=== PATIENT | male | born 1930 | race Caucasian/White ===

== ENCOUNTER 2018-09-13 22:11 | Inpatient (IN) | payer OTHER ==
[~2018-09-13] VITALS: Ht 162.6 cm; Wt 55.3 kg
--- NOTE | ~2018-09-13 | EKG ---
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 : 1930 Requested By: Parris Mayer Order Number: [id number] MD: Ivan Cleveland Measurements Intervals [place] Rate: 94 P: -33 MI: 138 QRS: 18 QRSD: 84 T: 41 QT: 393 QTc: 492 Interpretive Statements Sinus rhythm Multiform ventricular premature complexes Low voltage, extremity leads No previous ECG available for comparison Electronically Signed On 09-14-2018 10:38:51 ROLL TESTER by Ivan Cleveland [email or web address] <ELECTRONICALLY SIGNED> By: Ivan Cleveland MD, [facility] 09/14/18 1038 D: 12/2216 16 Ivan Cleveland MD, FACC /EPI
--- NOTE | ~2018-09-13 | EKG ---
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 Fighter: Shayy CARO : 1930 Requested By: Luis Fernando Diaz Order Number: [id number] MD: Ivan Cleveland Measurements Intervals [place] Rate: 74 P: 35 TN: 185 QRS: 17 QRSD: 88 T: 29 QT: 370 QTc: 411 Interpretive Statements Sinus rhythm Frequent premature ventricular complexes Low voltage, extremity leads Compared to ECG 09/13/2018 22:17:52 No significant changes Electronically Signed On 09-16-2018 8:21:35 ISSUE CLERK by Ivan Cleveland [email or web address] <ELECTRONICALLY SIGNED> By: Ivan Cleveland MD, [facility] 09/16/18 0821 99 99 Ivan Cleveland MD, [facility] /EPI
[2018-09-13 22:12] VITALS: BP 138/88
[2018-09-13 23:23] LABS: ABSOLUTE NEUTROPHILS 7.4 thou/uL (1.4-8.2); BASOPHILS 0.1 % (0.0-2.0); EOSINOPHILS 0.3 % (0.0-3.0); HEMOGLOBIN 12.1 gm/dL (14.0-18.0); MCH 34.7 pg (26.0-34.0); MCHC 33.7 g/dL (28.0-37.0); MONOCYTES 8.1 % (1.0-8.0); PLATELET COUNT 361 thou/uL (150-400); POLYS 74.5 % (36.0-66.0); RDW 18.9 % (10.5-14.5); WBC 9.9 thou/uL (4.0-11.0)
[2018-09-13 23:25] LABS: ANION GAP 7 mmol/L (7-16); BUN 33 mg/dL (7-18); CHLORIDE 107 mmol/L (98-107); CO2 30 mmol/L (21-32); GLUCOSE 107 mg/dL (74-106); POTASSIUM 3.9 mmol/L (3.5-5.1); SODIUM 144 mmol/L (136-145)
[2018-09-13 23:33] LABS: ALBUMIN 3.7 g/dL (3.4-5.0); DIRECT BILIRUBIN 0.1 mg/dL (<0.1-0.3); LIPASE 725 U/L (73-393); SGOT 14 U/L (15-37); SGPT 14 U/L (30-65); TOTAL BILIRUBIN 0.5 mg/dL (<0.1-1.0); TOTAL PROTEIN 6.9 g/dL (6.4-8.2); TROPONIN-I <0.06 ng/mL (<0.06)
[2018-09-14] LABS: URINE BILIRUBIN NEGATIVE (Negative); URINE BLOOD NEGATIVE (Negative); URINE CLARITY CLEAR; URINE COLOR YELLOW; URINE GLUCOSE-RANDOM* NEGATIVE (Negative); URINE KETONES NEGATIVE (Negative); URINE LEUKOCYTES-REFLEX NEGATIVE (Negative); URINE NITRITE-REFLEX NEGATIVE (Negative); URINE PROTEIN (DIPSTICK) NEGATIVE (Negative); URINE SPECIFIC GRAVITY >= 1.030 (1.005-1.035)
[2018-09-14] MEDS ORDERED: AMOXICILLIN 50500 MG PO (02:13)
[2018-09-14] MEDS ORDERED: ASPIR 8181 MG PO (02:13)
[2018-09-14] MEDS ORDERED: COLACE100 MG PO (02:14)
[2018-09-14] MEDS ORDERED: FISH OIL 1,001000 M2 PO (02:15)
[2018-09-14] MEDS ORDERED: FERROUS GLUCON324 M2 PO (02:15)
[2018-09-14] MEDS ORDERED: FLUOROMETHOLONE5 ML OPHTHALMIC (02:16)
[2018-09-14] MEDS ORDERED: FLONASE 0.05%50 MCG NASAL (02:17)
[2018-09-14] MEDS ORDERED: ALBUTEROL2.5 MG/31 INH (02:18)
[2018-09-14] MEDS ORDERED: SYNTHROID50 MCG PO (02:19)
[2018-09-14] MEDS ORDERED: MEGESTROL400 MG/11 PO (02:20)
[2018-09-14] MEDS ORDERED: NORCO 5-325 TA1 EACH PO (02:21)
[2018-09-14] MEDS ORDERED: CENTRUM SILVER1 EAC2 PO (02:21)
[2018-09-14] MEDS ORDERED: POTASSIUM20 PO (02:24)
[2018-09-14] MEDS ORDERED: PREDNISONE 20 M20 MG PO (02:31)
[2018-09-14] MEDS ORDERED: PROTONIX40 M1 PO (02:32)
[2018-09-14] MEDS ORDERED: SYMBICORT160 MCG/4. INH (02:32)
[2018-09-14] MEDS ORDERED: VITAMIN D3400 UNIT PO (02:33)
[2018-09-14 05:13] VITALS: BP 91/44
[2018-09-14 05:29] VITALS: BP 104/59
[2018-09-14 05:58] VITALS: BP 104/66
[2018-09-14 15:08] VITALS: BP 111/71
[2018-09-14 19:15] VITALS: BP 119/52
[2018-09-14 23:53] VITALS: BP 110/47
[2018-09-15 03:15] VITALS: BP 97/70
[2018-09-15 04:18] LABS: CALCIUM 8.4 mg/dL (8.5-10.1); CREATININE 0.9 mg/dL (0.7-1.3); POTASSIUM 4.3 mmol/L (3.5-5.1)
[2018-09-15 09:29] LABS: HEMATOCRIT 27.6 % (42.0-52.0); MCH 34.7 pg (26.0-34.0); MCHC 33.5 g/dL (28.0-37.0); MCV 103.7 fL (80.0-100.0); RBC 2.66 mil/uL (4.50-6.00); RDW 19.4 % (10.5-14.5); WBC 7.4 thou/uL (4.0-11.0)
[2018-09-15 09:31] LABS: HEMOGLOBIN 9.2 gm/dL (14.0-18.0)
[2018-09-15 16:00] VITALS: BP 105/62
[2018-09-15 19:13] VITALS: BP 106/58
[2018-09-16 07:18] VITALS: BP 108/74
[2018-09-16 09:02] LABS: HEMATOCRIT 30.2 % (42.0-52.0); HEMOGLOBIN 10.4 gm/dL (14.0-18.0); MCH 35.3 pg (26.0-34.0); MCHC 34.6 g/dL (28.0-37.0); MCV 102.2 fL (80.0-100.0); RBC 2.96 mil/uL (4.50-6.00); RDW 18.3 % (10.5-14.5)
[2018-09-16 09:14] LABS: CALCIUM 8.7 mg/dL (8.5-10.1); CREATININE 0.8 mg/dL (0.7-1.3); MAGNESIUM 1.8 mg/dL (1.8-2.4); POTASSIUM 4.7 mmol/L (3.5-5.1)
[2018-09-16] MEDS ORDERED: SPIRIVA INH (16:05)
[2018-09-16] MEDS ORDERED: PREDNISONE 10 M10 MG PO (16:05)
[2018-09-16] MEDS ORDERED: MIRALAX17 GM PO (16:06)
[2018-09-16 16:28] VITALS: BP 101/46
== END 2018-09-16 18:54 | DRG 439 ==
LOC: ER 22:11 → 4W 09-14 04:17 → EROBS 09-14 04:17 → 4W 09-14 05:32
PROVIDERS: Emergency Medicine; Internal Medicine; Nurse Practitioner Acute Care
DX: K85.90 Acute pancreatitis without necrosis or infection, unspecified (principal); J96.10 Chronic respiratory failure, unspecified whether with hypoxia or hypercapnia; J44.1 Chronic obstructive pulmonary disease with (acute) exacerbation; I50.9 Heart failure, unspecified; K21.9 Gastro-esophageal reflux disease without esophagitis; K59.00 Constipation, unspecified; M54.5 Low back pain; N40.0 Benign prostatic hyperplasia without lower urinary tract symptoms; E03.9 Hypothyroidism, unspecified; I11.0 Hypertensive heart disease with heart failure; M62.84 Sarcopenia; R63.0 Anorexia; Z68.20 Body mass index [BMI] 20.0-20.9, adult; Z87.891 Personal history of nicotine dependence; Z79.51 Long term (current) use of inhaled steroids; Z79.82 Long term (current) use of aspirin; Z79.899 Other long term (current) drug therapy; Z88.2 Allergy status to sulfonamides
CPT/HCPCS: 10045

== ENCOUNTER 2018-09-19 10:15 | Inpatient (IN) | payer OTHER ==
[~2018-09-19] VITALS: Ht 177.8 cm; Wt 50.4 kg
[~2018-09-19 10:15] MED LIST: ALBUTEROL2.5 MG/31 INH; AMOXICILLIN 50500 MG PO; ASPIR 8181 MG PO; CENTRUM SILVER1 EAC2 PO; COLACE100 MG PO; FERROUS GLUCON324 M2 PO; FISH OIL 1,001000 M2 PO; FLONASE 0.05%50 MCG NASAL; FLUOROMETHOLONE5 ML OPHTHALMIC; MEGESTROL400 MG/11 PO; MIRALAX17 GM PO; NORCO 5-325 TA1 EACH PO; POTASSIUM20 PO; PREDNISONE 10 M10 MG PO; PREDNISONE 20 M20 MG PO; PROTONIX40 M1 PO; SPIRIVA INH; SYMBICORT160 MCG/4. INH; SYNTHROID50 MCG PO; VITAMIN D3400 UNIT PO
[2018-09-19 10:18] VITALS: BP 132/91
[2018-09-19 10:40] LABS: HEMOGLOBIN 13.1 gm/dL (14.0-18.0); MCH 33.9 pg (26.0-34.0); MCHC 33.5 g/dL (28.0-37.0); MCV 101.2 fL (80.0-100.0); RBC 3.86 mil/uL (4.50-6.00); RDW 18.8 % (10.5-14.5); WBC 19.1 thou/uL (4.0-11.0)
[2018-09-19 10:50] LABS: ANION GAP 8 mmol/L (7-16); BUN 36 mg/dL (7-18); CALCIUM 9.3 mg/dL (8.5-10.1); CHLORIDE 104 mmol/L (98-107); CO2 33 mmol/L (21-32); CREATININE 1.2 mg/dL (0.7-1.3); GLUCOSE 124 mg/dL (74-106); POTASSIUM 4.2 mmol/L (3.5-5.1); SODIUM 145 mmol/L (136-145)
[2018-09-19 11:01] LABS: ALBUMIN 3.5 g/dL (3.4-5.0); LIPASE 82 U/L (73-393); SGOT 15 U/L (15-37); SGPT 14 U/L (30-65); TOTAL BILIRUBIN 0.9 mg/dL (<0.1-1.0); TOTAL PROTEIN 6.6 g/dL (6.4-8.2); TROPONIN-I <0.06 ng/mL (<0.06)
[2018-09-19] MEDS ORDERED: TYLENOL325 MG PO (11:10)
[2018-09-19] MEDS ORDERED: COMBIVENT INH (11:13)
[2018-09-19 12:20] LABS: URINE BILIRUBIN NEGATIVE (Negative); URINE BLOOD NEGATIVE (Negative); URINE CLARITY CLEAR; URINE COLOR YELLOW; URINE GLUCOSE-RANDOM* NEGATIVE (Negative); URINE KETONES NEGATIVE (Negative); URINE LEUKOCYTES-REFLEX NEGATIVE (Negative); URINE NITRITE-REFLEX NEGATIVE (Negative); URINE PROTEIN (DIPSTICK) NEGATIVE (Negative); URINE UROBILINOGEN 0.2 E.U./dl (0.2-1.0)
[2018-09-19 15:11] VITALS: BP 131/86
[2018-09-19 17:07] VITALS: BP 141/84
[2018-09-19 18:01] VITALS: BP 141/95
[2018-09-19 19:34] VITALS: BP 132/78
--- NOTE | 2018-09-19 19:36 | NUR ---
Patient arrived from ER this evening. Patient is alert and oriented x3-4, forgetful, NEWHALEN. May be poor historian? Follows commands. Arrive with NGT in left nare at 40. Unable to hear bubble through tube, unable to pull gastric contents from tube. Per Xray, must advance another 5 cm. Easily advanced another 5 cm - advanced to 55 cm, which was goal of ER advancement. Easily pulled gastric contents. Ordered another xray for confirmation, awaiting results at this time. To edge inker uppers to LIS when confirmed placement. NPO. Surgery consult with possible surgery tomorrow per ER report. IVF infusing. Fall precautions in place. Admission history completed and oriented to new room. Report to oncoming shift. Continue to monitor.
--- NOTE | 2018-09-19 20:12 | EKG ---
[address] [address] ELECTROCARDIOGRAM REPORT Name: BHARATH THOMPSON Room #: 362-P ADM IN M.R.#: [id number] Admission: 09/19/18 Attend Phys: Lawrence Mejia MD Discharge: Date of : 31 Report #: [id number] THIS REPORT FOR: //name// [facility] ED Test Date: 2018-09-19 Test Time: 10:53:52 Pat Name: BHARATH THOMPSON Department: Room: 362 Gender: M Brake Tester: KFRIEDT : 1930 Requested By: Reji Peck Order Number: [id number] MD: Jorge Moreno Measurements Intervals [place] Rate: 85 P: 66 AK: 164 QRS: 5 QRSD: 84 T: 58 QT: 367 QTc: 437 Interpretive Statements Sinus rhythm with PACs Compared to ECG 09/15/2018 17:00:14 Sinus rhythm no longer present Ventricular premature complex(es) no longer present Electronically Signed On 09-19-2018 20:11:59 SPEEDBOAT OPERATOR by Jorge Moreno [email or web address] <ELECTRONICALLY SIGNED> By: Jorge Moreno MD 09/19/182010 52 105 Jorge Moreno MD /EPI
--- NOTE | 2018-09-19 20:46 | NUR ---
patient pulled out ng tube. at around 1999. spoke with surgeon at 2039. i explained that the pt is flat out refusing to allow the tube be replaced. he respected this patients no and allowed for no tube replacement. however, he ordered STRICT NPO! for tonight and keep head of bed elevated. he denies pain, and has no urge to vomit. he is managing his secretions without difficulty
[2018-09-19 23:36] VITALS: BP 118/65
[2018-09-20] VITALS (11 sets, daily range): BP systolic 103–140; BP diastolic 54–92
[2018-09-20 06:02] LABS: HEMATOCRIT 33.5 % (42.0-52.0); HEMOGLOBIN 11.3 gm/dL (14.0-18.0); MCH 34.5 pg (26.0-34.0); MCHC 33.8 g/dL (28.0-37.0); MCV 102.2 fL (80.0-100.0); RBC 3.28 mil/uL (4.50-6.00); RDW 19.5 % (10.5-14.5); WBC 16.1 thou/uL (4.0-11.0)
[2018-09-20 06:16] LABS: CALCIUM 8.7 mg/dL (8.5-10.1); POTASSIUM 3.9 mmol/L (3.5-5.1)
--- NOTE | 2018-09-20 08:39 | NUR ---
Patient left for surgery at 0830. Granddaughter at bedside.
--- NOTE | 2018-09-20 18:08 | NUR ---
Assumed care of patient at 0700. Vitals have been stable; patient does desat with oxygen at times, currently is holding O2 sats between 92-96% on 4L NC. Lung sounds are coarse / rhonchi. Loose cough. Patient left for surgery this morning and returned this afternoon. Had hernia repair with gastric decompression. Returned with 3 laps sites and incision to right lower quadrant / groin, sealed with Dermabond. C/D/I. Patient drowsy post-op but arouses easily. Alert and oriented x3, but forgetful. Bilateral BEAVER. Forbes to DD. Large BM on return to floor, liquid. Remains NPO, okay for ice chips. Granddaughter at bedside this morning, had concerns regarding care and plans for surgery. Reassurance provided; surgery at bedside, who allowed patient and granddaughter to speak with Dr. Alonzo and rolly. Granddaughter also spoke with steffen house supervisor. Updated granddaughter on patient's condition this evening, no further concerns or questions. Slowly progressing towards POC. Will continue to monitor.
--- NOTE | 2018-09-20 21:06 | O ---
[facility] [place] [address] OPERATIVE REPORT Name: BHARATH THOMPSON Room #: 362-P ADM IN M.R.#: [id number] Admission: 09/19/18 Attend Phys: Lawrence Mejia MD Discharge: Date of : 31 Report #: [id number] THIS REPORT FOR: //name// CC: Lawrence Mejia Deidre Lobato DATE OF SERVICE: 09/20/2018 SURGEON: Fer Alonzo MD MACHINE I TRIMMER: None PREOPERATIVE DIAGNOSES: 1. Small-bowel obstruction secondary to incarcerated recurrent right inguinal hernia. 2. Chronic obstructive pulmonary disease. 3. Hiatal hernia. POSTOPERATIVE DIAGNOSES: 1. Small-bowel obstruction secondary to incarcerated recurrent right inguinal hernia. 2. Chronic obstructive pulmonary disease. 3. Hiatal hernia. PROCEDURES: 1. Diagnostic laparoscopy. 2. Open repair of recurrent incarcerated right indirect and femoral hernia. 3. EGD for decompression. ANESTHESIA: General endotracheal anesthesia and local anesthetic. ESTIMATED BLOOD LOSS: 10 mL. SPECIMEN: Hernia sac. COMPLICATIONS: None appreciated. INDICATIONS FOR PROCEDURE: This is an 88-year-old male [facility] patient with a history of COPD and hypertension who has had difficulty with right groin pain and constipation with associated nausea and emesis. Through the [facility], the patient underwent a CT of the abdomen and pelvis showing small bowel located within a right inguinal hernia causing a small-bowel obstruction. The patient's white blood cell count was 19.1. He had a large hiatal hernia on imaging studies as well. Lactate was within normal limits. The patient was reluctant to undergo nasogastric decompression. However, he ultimately agreed and the tube was placed. Unfortunately, the patient did not tolerate tube placement and the tube was pulled by the patient. [facility] [address] [place] [address] OPERATIVE REPORT Name: JAYBHARATH [place] Room #: 362-P [facility] IN .R.#: [id number] Admission: 09/19/18 Attend Phys: Lawrence Mejia MD Discharge: Date of : 31 Report #: [id number] He has a history of bilateral open inguinal hernia repairs with mesh 8 months ago at an outside institution. The patient reports that the hernia seemed to have recurred on the right side soon after his operation, but that the surgeon stated nothing more could be done surgically. The patient presents now for EGD for decompression with laparoscopic repair of his incarcerated right groin hernia, possible bowel resection and possible open. OPERATIVE FINDINGS: On EGD, the patient had a normal appearing esophagus. At least half of the stomach was located above diaphragmatic enfolding. 650 mL of gastric fluid was suctioned from the stomach in this area. I was able to advance the scope beyond the hiatal hernia and minimal fluid was present within the more distal stomach and duodenum. Laparoscopically, the patient had distended bowel as seen on the CT scan. Small bowel was seen entering a right inguinal hernia that was located lateral to the previously placed Ethicon mesh. Hemoclips were seen at the lateral aspect of the mesh. The bowel was able to be reduced without significant difficulty. The hernia defect appeared to be deep and lateral to the mesh, which appeared to have also been slightly folded over and misplaced. The bowel was completely viable. The patient did develop subcutaneous emphysema after reducing the hernia and decision was made to convert to an open procedure. The patient has significant COPD and there was concern that extubating the patient may be difficult with CO2 retention. After creating the transverse inguinal incision, there was significant scar tissue located within the inguinal canal. The patient was felt to have a femoral component as well as a recurrent indirect component of this hernia. The femoral defect was able to be plugged with mesh; the recurrent indirect hernia was closed primarily and reinforced with mesh. After completing the open portion of this procedure, the abdominal cavity was reinsufflated and the hernia appeared to have been repaired. The peritoneum that was loosely dangling was tacked to the anterior abdominal wall and mesh with absorbable fixation tacks. At the conclusion of the operation, sponge, needle and instrument counts were correct. The patient tolerated the procedure throughout. DESCRIPTION OF PROCEDURE IN DETAIL: After the risks, benefits and expectations of the operation were discussed in detail with the patient and his granddaughter/DPOA, informed consent was obtained. The patient was identified in the preoperative holding area. He was given IV antibiotics as documented in the chart in line with SCIP metrics. The patient was then taken to the operating room and he was placed in the supine position. SCDs were placed on the patient's bilateral lower extremities and pneumatic compression was initiated. The patient was given light sedation and a bite block was placed by Anesthesia. A time-out was performed to identify the patient and procedure. The EGD scope was advanced into the patient's oropharynx and passed down in the esophagus and into the stomach, which was mostly located in the mediastinum [facility] [address] [place] [address] OPERATIVE REPORT Name: BHARATH THOMPSON Room #: 362-P [facility] IN Deandre#: [id number] Admission: 09/19/18 Attend Phys: Lawrence Mejia MD Discharge: Date of : 31 Report #: [id number] above the diaphragmatic defect. A 650 mL of gastric fluid was suctioned from the stomach using the endoscope. The scope was advanced beyond the hernia distally and the duodenum appeared normal. No polyps, masses, diverticula or ulcers were seen. After suctioning out the fluid, the stomach was decompressed with the scope and the scope was slowly withdrawn through the otherwise normal appearing esophagus. The patient's abdomen was then prepped and draped in the standard sterile fashion. The patient's arms were tucked. His abdomen was prepped and draped in the standard sterile fashion. Local anesthetic was infiltrated into the skin and subcutaneous tissue supraumbilically where a small vertical midline incision was made. Dissection was carried down to the fascia. A tamara was made in the fascia and a 5 mm visual entry port was placed intraperitoneally with a 0-degree angled laparoscope. Pneumoperitoneum was achieved with insufflation of carbon dioxide to 15 mmHg. A 30-degree angled laparoscope was then inserted. Additional 5 mm ports were placed on each side laterally after local anesthetic was infiltrated into the skin, subcutaneous tissue and appropriately sized incisions were made. The patient was placed in the Trendelenburg position. Operative findings are as noted above. The bowel that was incarcerated within the right groin defect was carefully reduced with gentle steady traction. The incarcerated bowel was completely viable. The defect was identified. Immediately after doing this, the patient developed subcutaneous emphysema in the area that was extending up his abdomen. After discussion with Anesthesia, decision was made to abort the laparoscopic approach and perform the operation in an open fashion. The planned right transverse inguinal incision was drawn out with a skin marker. Local anesthetic was infiltrated into the skin and subcutaneous tissue. A sharp #10 blade scalpel was then used to make the incision. Dissection was carried through the subcutaneous tissue down to the fascia of the external oblique. The external oblique fascia was then opened along the length of its fibers toward the external inguinal ring. Hemostats were placed on each leaf of the external fascia. The underlying tissue was scarred in; however, I was able to identify the spermatic cord. This was encircled with a [place] drain. Dissection was carried out until a hernia sac was identified that was noted to be lateral to the mesh. The Hemoclips on the mesh were removed. The hernia sac was reduced from the defect. Excess hernia sac was trimmed away and sent for specimen. After palpation internally, there was felt to be a femoral defect as well. The abdominal cavity had been entered through this area. Inferior to the inguinal ligament, the empty space was opened and the hernia sac was identified. The Surgimesh plug was then placed within this defect and secured to the surrounding tissue with simple interrupted 0 Prolene sutures. Attention was then turned to the recurrent indirect defect. The spermatic cord was protected. [address] [address] OPERATIVE REPORT Name: BHARATH THOMPSON [place] Room #: 362-P [facility] IN M.R.#: [id number] Admission: 09/19/18 Attend Phys: Lawrence Mejia MD Discharge: Date of : 31 Report #: [id number] The hernia was closed primarily with a running 0 Prolene suture with care taken to avoid any contact with the underlying bowel. After closing this area, a Surgimesh patch was placed overlying the closure. The crotch of the mesh was cut to accommodate for the spermatic cord. The medial aspect of the mesh was approximated to the pubic tubercle and the medial aspect of the mesh approximated to the underlying transversalis fascia and transversus abdominis muscle with a running 0 Prolene suture. Interrupted 0 Prolene sutures were placed along the shelving edge of the inguinal ligament as well as to approximate the tails of the mesh to the underlying tissue. Local anesthetic was infiltrated subfascially. The spermatic cord was then released and the external oblique fascia was closed with a running 2-0 Vicryl suture. Interrupted 2-0 Vicryl sutures were used to close the Negin's fascia. Prior to closure of the skin, the abdominal cavity was reentered laparoscopically. The right groin hernia defect appeared to be closed. The peritoneum was tacked to the anterior abdominal wall and mesh. Attention was then turned to the stomach. 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 The defect itself was quite large. The colon was completely reduced from the defect and as much of the stomach was pulled down into the abdominal cavity as possible. After ensuring final hemostasis within the abdominal cavity, the abdominal cavity was desufflated after suctioning free fluid from the abdominal cavity. The ports were removed after desufflating the abdomen. Interrupted subcuticular 4-0 Monocryl sutures and Dermabond were used to close the port site incisions and a running 4-0 Monocryl subcuticular suture and Dermabond were used to close the right transverse inguinal incision. The patient tolerated the procedure well. He was awakened, extubated, and taken to the recovery room in stable condition with no apparent intraoperative complications. <ELECTRONICALLY SIGNED> By: Fer Alonzo MD, FACS 09/20/18 2106 1210 1306 Fer Alonzo MD, FACS /nt
--- NOTE | 2018-09-20 22:01 | NUR ---
provider notified of reddness around surgical site and temp. no orders recived. sherin. @5557 09/20/18
[2018-09-21 03:32] VITALS: BP 111/59
[2018-09-21 08:02] VITALS: BP 144/75
--- NOTE | 2018-09-21 08:04 | NUR ---
PATIENT IS ALERT AND ORIENTED TO SELF. PATIENT IS NPO. PATIENT IS UP TIMES ONE WITH A WALKER. PATIENTS INCISION IS RED AND TENDER PROVIDER AWARE NO ORDERS RECEIVED. INCISIONS HELD TOGETHER WITH DERMABOND. PATIENT HAS A AYALA. SHARON LBM WAS THE . PATIENT IS ON 4L NC. PATIENT WAS ENCOURAGED TO DO IS. AND SCDS APPLIED. PATIENTS PAIN IS CONTROLLED WITH PAIN MEDICAITONS. PATIENT IS POST OP DAY ONE. PATIENT IS RESTING COMFORTABLEY IN BED. WCM. PATIENT IS PROGRESSING TO GOALS.
--- NOTE | 2018-09-21 14:50 | NUR ---
PT IS PROGRESSING TOWARD POC GOALS. PT A/0 X3 WITH OCCASIONAL FORGETFULNESS. PT C/O OF ABD PAIN, AND WAS MEDICATED PER MAR. PT'S DIET ADVANCED TOLERATED. IVF INFUSING. SURGICAL INCISIONS C/D/I. LOWER RIGHT QUADRANT INCISION REMAINS RED, AND FIRM. SURGEON EXAMINED DURING ROUNDS. LUCY TO ALEXANDRA. PT ON 2L 02 VIA NC. PT IS RESTING COMFORTABLY AT THIS TIME, CALL LIGHT WITHIN REACH WITH FREQUENT OBSERVATION.
[2018-09-21 15:12] VITALS: BP 119/67
--- NOTE | 2018-09-22 04:44 | NUR ---
PT PROGRESSING TOWARDS DC GOALS. PT USING INCENTIVE SPIROMETER WITH GOOD RESULTS OF 1.5. PT STILL COMPLAINS OF PAIN IN ABDOMEN, GAVE IV PAIN MEDICATION. ALL LAP SIGHTS ARE INTACT WITH DURMA YOUNG. PT STATES NO N/V. PT IS HARD HEARING SO YOU NEED TO SPEAK SLOW AND HAVE EYE CONTACT WITH PT TO COMMUNICATE YOUR NEEDS. ROUNDED HOURLY AND PT SLEPT ALL EVENING.
[2018-09-22 05:51] VITALS: BP 122/73
[2018-09-22 06:48] LABS: HEMATOCRIT 26.5 % (42.0-52.0); MCH 34.2 pg (26.0-34.0); MCHC 33.5 g/dL (28.0-37.0); MCV 102.2 fL (80.0-100.0); RBC 2.59 mil/uL (4.50-6.00); RDW 18.7 % (10.5-14.5); WBC 9.9 thou/uL (4.0-11.0)
[2018-09-22 06:59] LABS: HEMOGLOBIN 8.9 gm/dL (14.0-18.0)
[2018-09-22 07:02] LABS: CREATININE 0.7 mg/dL (0.7-1.3); POTASSIUM 3.5 mmol/L (3.5-5.1)
[2018-09-22 08:30] VITALS: BP 118/66
--- NOTE | 2018-09-22 11:33 | NUR ---
ASSESSMENT-PT IS ON THE REHAB UNIT AT [facility]. HE SAYS THEY ASSIST HIM TO THE WC AND HE USES IT TO MOBILIZE. PT GOES TO THE [facility] FOR MEALS AND NEEEDS ASSIST WITH ADLS. PT SAYS HE WEARS O2 AT [facility]. PT WALKS SHORT DISTANCE IN THE ROOM WITH A WALKER. FOLLOWING TO ASSIST WITH DC PLANNING.
--- NOTE | 2018-09-22 12:37 | NUR ---
PT IS BEING ENCOURAGED TO COUGH HE HAS SECRETIONS WHICH HE IS NOT CLEARING. PATIENT DOES NOT WANT TO COUGH DUE TO PAIN. THERE ARE NO NOTICABLE WHEEZES- JUST A LOOS NONPRODUCTIVE COUGH
[2018-09-22 17:20] VITALS: BP 107/75
--- NOTE | 2018-09-22 18:31 | NUR ---
ASSUMED PATIENT CARE AT 0700. A/O X4. VERY ALVAREZ HEARING. ONE ASSISTED TRANSFER. PATIENT HAS IRRITABLE BEAL. NO BM ON THIS SHIFT. SLOWLY TOWARDS TO POC GOALS.
[2018-09-22 19:25] VITALS: BP 122/74
[2018-09-23 09:18] VITALS: BP 113/55
[2018-09-23 11:38] LABS: HEMATOCRIT 26.6 % (42.0-52.0); HEMOGLOBIN 9.2 gm/dL (14.0-18.0); MCH 35.4 pg (26.0-34.0); MCHC 34.5 g/dL (28.0-37.0); MCV 102.8 fL (80.0-100.0); RBC 2.59 mil/uL (4.50-6.00); RDW 18.2 % (10.5-14.5); WBC 10.1 thou/uL (4.0-11.0)
[2018-09-23 11:49] LABS: ALBUMIN 2.1 g/dL (3.4-5.0); CALCIUM 8.1 mg/dL (8.5-10.1); CREATININE 0.7 mg/dL (0.7-1.3); MAGNESIUM 2.1 mg/dL (1.8-2.4); POTASSIUM 3.4 mmol/L (3.5-5.1); TOTAL BILIRUBIN 0.7 mg/dL (<0.1-1.0); TOTAL PROTEIN 5.2 g/dL (6.4-8.2)
--- NOTE | 2018-09-23 14:15 | NUR ---
ASSUMED CARE AT 0700, SHIFT ASSESSMENT DONE, MEDS GIVEN, VSS. REPROTED DIFFICULTY BREATHING, RECEIVED SCHEDULED BREATHING TREATMENT. DIET ADVANCED TO REGULAR DIET. TOLERATING WELL, APPETITE POOR. LUNG SOUNDS ARE COARSE, ON 3L NASAL CANULA. COUGHING UP GOOD AMOUNT OF YELLOW PHLEGM, DR PATINO INFORMED, PORTABLE CHEST X-RAY ORDERED. WILL CONTINUE TO ASSESS AND ASSIST WITH ADLs NEEDED.
--- NOTE | 2018-09-23 16:47 | NUR ---
PATIENT PROBABLY ASPIRATED AFTER ADVANCING TO SOFT DIET. IV ANTIBIOTICS ORDERED. WILL BE NPO UNTIL EVALAUTED BY SPEECH THERAPHY. FAMILY AT THE BEDSIDE THIS PM, AWARE OF THE PLAN.
[2018-09-23 20:10] VITALS: BP 123/63
[2018-09-24 00:41] VITALS: BP 11/74; BP 111/74
--- NOTE | 2018-09-24 05:46 | NUR ---
ASSUMED CARE OF PATIENT AROUND 2200. PATIENT CONFUSED AND FORGETFUL, AROUND 0500 STATED HE WANTED TO GO BACK TO HIS ROOM AT THE FACILITY. REORIENTED PATIENT TO SURROUNDINGS AND HE WAS ABLE TO REMEMBER. PATIENT ALSO AWAKE FOR MAJORITY OF SHIFT, ENCOURAGED PATIENT TO SLEEP, TOASTER OPERATOR LIGHTS, ETC., BUT PATIENT REFUSED. PATIENT IS MAKING SOME PROGRESS TOWARD GOALS, WILL CONTINUE TO MONITOR.
[2018-09-24 07:07] LABS: HEMATOCRIT 22.8 % (42.0-52.0); HEMOGLOBIN 7.9 gm/dL (14.0-18.0); MCHC 34.5 g/dL (28.0-37.0); MCV 101.6 fL (80.0-100.0); RBC 2.24 mil/uL (4.50-6.00); RDW 17.9 % (10.5-14.5); WBC 8.2 thou/uL (4.0-11.0)
[2018-09-24 07:19] LABS: CALCIUM 7.6 mg/dL (8.5-10.1); CREATININE 0.6 mg/dL (0.7-1.3); MAGNESIUM 1.8 mg/dL (1.8-2.4); POTASSIUM 3.6 mmol/L (3.5-5.1)
[2018-09-24 08:30] VITALS: BP 110/71
--- NOTE | 2018-09-24 10:38 | NUR ---
SW reviewed chart and spoke with nursing and attending physician. Pt was transferred to [facility] from . Pt to have ST eval today due to pt aspirating. Plan is for pt to return to [facility] when medically stable. Clinical updates to be faxed to [facility] for review. JORDAN is following to assist as needed with discharge planning.
--- NOTE | 2018-09-24 12:06 | PATH ---
[facility] [address] [place] [address] PATHOLOGY RPT PROCEDURE Name: ANIL KOLB [place]S CHURCH Room #: 226-P ADM IN M.R.#: [id number] Admission: 09/19/18 Date of : 31 Discharge: Report #: [id number] Path Case #: [id number] [facility] Accession Number: [id number] . 01 Material submitted: . HERNIA SAC . 01 Clinical history: . Right groin hernia . 02 Diagnosis: Fibroadipose tissue, "hernia sac, herniorrhaphy": - Hernia sac with congestion, edema and chronic inflammation. . (SHA:mary; 09/24/18) [facility]/09/24/2018 . 02 Electronically signed: . Rasheed Baltazar MD, Pathologist NPI- [id number] . 01 Gross description: . The specimen is received in formalin, labeled "Anil Kolb, hernia sac" and consists of a membranous, saccular, and thin-walled segment of pereira-donald tissue measuring 6.3 x 2.2 x 0.3 cm. No nodules or mass lesions are identified. Associate Professor Of Theology sections are submitted in A1. (SDY; 09/22/2018) SYU/SYU . 02 Pathologist provided ICD-10: K40.90 . 02 CPT . [id number] Specimen Comment: A courtesy copy of this report has been sent to Specimen Comment: [phone], , . Specimen Comment: Report sent to , and Performed at: [address], [place] [id number] MD Brayden Chinchilla MD Phone: [phone] Performed at: [address] [id number] MD Latosha Bradshaw MD Phone: [phone]
[2018-09-24 20:01] VITALS: BP 110/61
--- NOTE | 2018-09-25 05:48 | NUR ---
PATIENT ALERT AND ORIENTED WITH PERIODS OF FORGETFULNESS AND CONFUSION. VERY ALEKNAGIK. INCISIONS ON ABD HEALING WITH EDGES WELL APPROXIMATED W/O REDNESS OR HEAT. ABD VERY TENDER TO TOUCH. PAIN MED GIVEN. LUCY POOL UINRE. AYALA FOR RETENTION. ON MECH SOFH DIET WITH THICK LIQ. HAS A PRODUCTIVE COUGH OF THICK YELLOW SPUTUM. LUNGS CLEAR. IV PATENT WITH NS AT 75ML/HR. SLEPT LITTLE THIS SHIFT.
[2018-09-25 07:27] LABS: HEMATOCRIT 23.2 % (42.0-52.0); HEMOGLOBIN 7.9 gm/dL (14.0-18.0); MCH 34.8 pg (26.0-34.0); MCV 102.3 fL (80.0-100.0); RBC 2.27 mil/uL (4.50-6.00); RDW 18.2 % (10.5-14.5); WBC 6.3 thou/uL (4.0-11.0)
[2018-09-25 07:44] VITALS: BP 114/70
[2018-09-25 07:47] LABS: CALCIUM 7.9 mg/dL (8.5-10.1); CREATININE 0.7 mg/dL (0.7-1.3); MAGNESIUM 1.8 mg/dL (1.8-2.4); POTASSIUM 3.1 mmol/L (3.5-5.1)
--- NOTE | 2018-09-25 10:21 | NUR ---
DISCHARGE PLANNING. POSSIBLE DISCHARGE PLANNED FOR TODAY TO [facility]. UPDATED CLINICAL INFORMATION FAXED TO [facility]MISSIONS, VERIFIED RECEIVED. WILL FACILITATE DISCHARGE TO [facility] ONCE PATIENT IS CLEARED MEDICALLY AND DISCHARGE ORDERS ARE OBTAINED.
--- NOTE | 2018-09-25 15:02 | NUR ---
SW reviewed chart and spoke with nursing and attending physician. Pt is not ready for discharge back to [facility] yet. Pt had video swallow today. Pt with new diet of mechanical soft and honey thick liquids. farm planner faxed clincial updates to [facility] for review. JORDAN is following to assist as needed with discharge planning.
--- NOTE | 2018-09-25 15:11 | NUR ---
ASSUMED CARE THIS AM. VSS. MEDS GIVEN. REPORTED PAIN, PRN PAIN MEDS GIVEN. REMAINS ON 2L NC. WENT FOR A VIDEO SWALLOW EVALUATION. EVAL INDICATED PATIENT HAS TO BE ON MECHANICALLY ALTERED DIET AND HONEY THICK LIQUIDS. RECEIVING SCHEDULED BREATHING TREATMENT. POSSIBLE DISCHARGE TOMORROW.
[2018-09-25 20:07] VITALS: BP 97/47
--- NOTE | 2018-09-26 05:35 | NUR ---
PATIENT ALERT AND ORIENTED X4. IV OF NS AT 75ML/HR. DIET ADVANCED TO MS WITH HONEY THICK WITH NO STRAWS. BP LAST NIGHT WAS 97/47, THIS AM IT IS 121/67 WITH A PULSE OF 61. READY TO GO BACK TO [facility]. SLEPT MOST OF NIGHT.
[2018-09-26 07:13] LABS: HEMATOCRIT 25.4 % (42.0-52.0); HEMOGLOBIN 8.6 gm/dL (14.0-18.0); MCH 34.7 pg (26.0-34.0); MCHC 33.8 g/dL (28.0-37.0); MCV 102.5 fL (80.0-100.0); RBC 2.48 mil/uL (4.50-6.00); RDW 18.3 % (10.5-14.5)
[2018-09-26 07:24] LABS: CALCIUM 7.6 mg/dL (8.5-10.1); CREATININE 0.7 mg/dL (0.7-1.3); MAGNESIUM 1.9 mg/dL (1.8-2.4); POTASSIUM 3.6 mmol/L (3.5-5.1)
--- NOTE | 2018-09-26 16:39 | NUR ---
JORDAN reviewed chart and spoke with nursing and attending physician. Awaiting surgery clearance for discharge. Pt will return to to [facility] when medically stable. Pt will need a chart copy. Final discharge orders/summary will need to be faxed when available. SW is available to assist as needed. [place]--
--- NOTE | 2018-09-26 17:31 | NUR ---
PATIENT CARE WAS ASSUMED AT 0715.PATIENT IS ALERT AND ORIENTED X4.PATIENT HAS SOME FORGETFULNESS.PT IS [place].IV IS INTACT AND INFUSING FLUIDS .PT AMBULATES WITH STAND BY ASSIST WITH WALKER.PT IS EASILY UPSET WHEN THINGS ARE NOT DONE HIS WAY.PT HAS COMPLAINED OF HAVING PAIN IN ABD AREA WHEN AMBULATING.PT DOESN'T WANT ANY PAIN MEDS AT THIS TIME, WHEN OFFERED.CALL LIGHT, PHONE, AND PERSONAL BELONGINGS ARE WITHIN REACH.WILL CONTINUE TO MONITOR PATIENT.
--- NOTE | 2018-09-27 05:38 | NUR ---
ASSUMED CARE OF PATIENT AT 1900. ASSESSMENT COMPLETED AT 1999 AND IS DOCUMENTED. PT VERY GRUMPY AT TIMES THROUGHOUT SHIFT, BUT SLEPT SOUNDLY THROUGHOUT NIGHT IN NO ACUTE DISTRESS. PT HAS A PRODUCTIVE COUGH WITH COPIOUS AMOUNTS OF YELLOW SPUTUM. LAP SITES AND RLQ/GROIN INCISION WOUNDS WELL APPROXIMATED WITH DERMABOND STILL IN PLACE. PIV IN LEFT FA RUNNING NS @ 75 ML/HR WITHOUT COMPLICATION. PT CONTINUES ON O2 @ 1L VIA NC. PT ABLE TO CALL OUT APPROPRIATELY. CURRENTLY ASLEEP IN BED WITH CALL LIGHT IN REACH. BED LOCKED AND IN LOWEST POSITION. WCTM.
[2018-09-27 07:44] VITALS: BP 126/64
[2018-09-27 07:52] LABS: HEMATOCRIT 24.6 % (42.0-52.0); HEMOGLOBIN 8.2 gm/dL (14.0-18.0); MCH 34.1 pg (26.0-34.0); MCHC 33.5 g/dL (28.0-37.0); MCV 101.9 fL (80.0-100.0); RBC 2.41 mil/uL (4.50-6.00); RDW 17.8 % (10.5-14.5); WBC 5.1 thou/uL (4.0-11.0)
[2018-09-27 08:01] LABS: CALCIUM 8.1 mg/dL (8.5-10.1); CREATININE 0.7 mg/dL (0.7-1.3); MAGNESIUM 1.9 mg/dL (1.8-2.4); POTASSIUM 3.8 mmol/L (3.5-5.1)
[2018-09-27] MEDS ORDERED: AUGMENTIN 875-1 EACH PO (15:18)
--- NOTE | 2018-09-27 17:45 | NUR ---
ASSUMED CARE OF PATIENT AT 0715, PATIENT ALERT WITH SOME CONFUSION/FORGETFUL. PATIENT IS [place]. PATIENT HAS SOME DISCOMFORT WITH ABDOMEN AREA, PATIENT HAS 3 LAP SITES AND RIGHT LOWER QUAD INCISION ALL WITH DERMABOND IN PLACE AND C/D/I. PATIENT ON HONEY THICK LIQUIDS TOLERATING W/O DIFFICULTY. PATIENT HAD IV LEFT FOREARM WITH NS AT 75CC/HR. AYALA CATHETER DISCONTINUED AT 1030, PATIENT HAD VOIDED SINCE CATHETER REMOVED. DR PATINO STATES PATIENT WILL DISCHARGE BACK TO [place]. GRANDDAUGHTER HERE THIS AM, AND VERY UPSET ABOUT HER GRANDFATHERS CARE, HAD HER SPEAK TO JENNIFER TRAVIS/RECEPTIONIST/TELEPHONE OPERATOR NOTIFIED ABOUT GRANDDAUGHTER'S COMPLIANT. REPORT CALLED TO FACILITY, SPOKE WITH LUCA/IRLANDA. ALL DISCHARGE PAPERWORK AND ALL PERSONAL BELONGINGS SENT WITH PATIENT. WITH THE PATIENT. IV REMOVED FROM LEFT FOREARM PRIOR TO DISCHARGE.
== END 2018-09-27 18:00 | DRG 350 ==
LOC: ER 10:15 → SICU 13:34 → 3W 13:34 → EROBS 13:34 → 3W 17:18 → SICU 09-22 18:26
PROVIDERS: Emergency Medicine; Internal Medicine; ADMIT Hospitalist
PROC: 0YJ74ZZ Inspection of Right Femoral Region, Percutaneous Endoscopic Approach (ICD-10-PCS; principal; 2018-09-20)
PROC: 0YQ70ZZ Repair Right Femoral Region, Open Approach (ICD-10-PCS; principal; 2018-09-20)
PROC: 0D9680Z Drainage of Stomach with Drainage Device, Via Natural or Artificial Opening Endoscopic (ICD-10-PCS; principal; 2018-09-20)
DX: K56.609 Unspecified intestinal obstruction, unspecified as to partial versus complete obstruction (principal); J69.0 Pneumonitis due to inhalation of food and vomit; E43 Unspecified severe protein-calorie malnutrition; K40.30 Unilateral inguinal hernia, with obstruction, without gangrene, not specified as recurrent; Z68.1 Body mass index [BMI] 19.9 or less, adult; I11.0 Hypertensive heart disease with heart failure; J44.9 Chronic obstructive pulmonary disease, unspecified; K21.9 Gastro-esophageal reflux disease without esophagitis; E03.9 Hypothyroidism, unspecified; I50.9 Heart failure, unspecified; K59.09 Other constipation; D53.9 Nutritional anemia, unspecified; K44.9 Diaphragmatic hernia without obstruction or gangrene; Z79.82 Long term (current) use of aspirin; Z79.899 Other long term (current) drug therapy; Z88.2 Allergy status to sulfonamides; Z87.891 Personal history of nicotine dependence
CPT/HCPCS: 10779; 10879; 15002; 50101; 50249; 50386; 50455; 50555; 50558; 50788; 50962; 50984; 51489; 52265; 53307; 54022; 54118; 56462; 56525; 56526; 57092; 62110; 62900; 70005

== ENCOUNTER 2018-10-31 23:57 | Inpatient (IN) | payer OTHER ==
[~2018-10-31] VITALS: Ht 167.6 cm; Wt 54.4 kg
[~2018-10-31 23:57] MED LIST changes: +AUGMENTIN 875-1 EACH PO; +COMBIVENT INH; +TYLENOL325 MG PO
[2018-10-31 23:58] VITALS: BP 121/75
[2018-11-01] VITALS (82 sets, daily range): BP systolic 42–127; BP diastolic 10–80
[2018-11-01 00:21] LABS: ABSOLUTE NEUTROPHILS 19.9 thou/uL (1.4-8.2); BASOPHILS 0.7 % (0.0-2.0); EOSINOPHILS 0.1 % (0.0-3.0); HEMATOCRIT 31.3 % (42.0-52.0); HEMOGLOBIN 10.5 gm/dL (14.0-18.0); LYMPHOCYTES 6.5 % (24.0-44.0); MCHC 33.7 g/dL (28.0-37.0); MCV 103.6 fL (80.0-100.0); MONOCYTES 4.5 % (1.0-8.0); PLATELET COUNT 490 thou/uL (150-400); POLYS 88.2 % (36.0-66.0); RBC 3.02 mil/uL (4.50-6.00); RDW 17.3 % (10.5-14.5); WBC 22.6 thou/uL (4.0-11.0)
[2018-11-01 00:36] LABS: ANION GAP 10 mmol/L (7-16); BUN 27 mg/dL (7-18); CALCIUM 9.1 mg/dL (8.5-10.1); CHLORIDE 106 mmol/L (98-107); CO2 27 mmol/L (21-32); CREATININE 1.4 mg/dL (0.7-1.3); GLUCOSE 265 mg/dL (74-106); POTASSIUM 3.9 mmol/L (3.5-5.1); SODIUM 143 mmol/L (136-145)
[2018-11-01 00:44] LABS: APTT 24.4 Seconds (24.5-32.8); INR 1.1; PROTIME 11.6 Seconds (9.3-11.4)
[2018-11-01 00:45] LABS: ALBUMIN 2.8 g/dL (3.4-5.0); SGOT 16 U/L (15-37); SGPT 25 U/L (30-65); TOTAL BILIRUBIN 0.5 mg/dL (<0.1-1.0); TROPONIN-I <0.06 ng/mL (<0.06)
--- NOTE | 2018-11-01 00:52 | NUR ---
ATTEMPTED TO GET HOLD OF DAUGHTER, ELIJAH, MESSAGE LEFT TALKED WITH MAIRA, AND UPDATED HER ON HIS CONDITION TALKED WITH POP, PT IS FULL CODE
[2018-11-01] MEDS ORDERED: ASPIR 8181 MG PO (00:54)
[2018-11-01] MEDS ORDERED: LINZESS145 MCG PO (01:05)
[2018-11-01] MEDS ORDERED: MILK OF MA400 MG/5 M PO (01:07)
[2018-11-01] MEDS ORDERED: PROTONIX40 M1 PO (01:08)
[2018-11-01 01:10] LABS: BE(vivo) -3.5 mmol/L (-2 to +3); HCO3 22.4 mmol/L (22.0-26.0); PCO2 VENOUS 44.2 mmHg (41.0-51.0); PO2 VENOUS 45.3 mmHg (35.0-45.0)
[2018-11-01] MEDS ORDERED: METRONIDAZOLE500 M4 PO (01:13)
[2018-11-01] MEDS ORDERED: DOXYCYCLINE 10100 MG PO (01:13)
--- NOTE | 2018-11-01 04:20 | NUR ---
Pt post code remains very unstable. He was very restless and tachypnic. He is continue to be very hypotensive despite increased Levophed gtt to Maximum dose. Will add vasopressin as order.
--- NOTE | 2018-11-01 04:30 | NUR ---
PT ARRIVED ICU VIA CART, ACCOMPANIED WITH ER STAFF TO ROOM 247. HE IS NOTES TO BE IN AGONAL BREATHING AND UNRESPONSIVE. HE STILL HAVE A STRONG PULSE ON LEFT AGOIN . ST ON MONITOR AND NOT ABLE TO OBTAIN O2 SAT OR BP UPON ARRIVAL. OSBALDO DE LA ROSA WAS CALLED BY ME; PLEASE SEE CODE BLUE SHEET.
--- NOTE | 2018-11-01 04:30 | NUR ---
Pt arrived ICU via cart, accompanied with ER staff to room 247. He is notes to have agonal breathing. He is unresponsive, and have a strong pulse notes. Unable to obtain O2 sat or BP. He is in ST upon arrival. Code blue was activated per ACLS protocol. Please see CODE BLUE sheet for details.
--- NOTE | 2018-11-01 04:44 | NUR ---
PT WAS ALERT AND TALKATIVE WHEN LEAVING IN THE ED. WHEN HE ARRIVED AT ICU, PT BECAME UNRESPONSIVE AND ICU NURSE PAGED CODE BLUE. CODE TEAM ARRIVES. DR. MOSQUERA WELL PRESENT TO GUIDE INTUBATION AND GUIDE TEAM.
--- NOTE | 2018-11-01 04:50 | NUR ---
Pt is continue to be very hypotensive. He is currently on Maximum dose of Levophed and Vasopressin gtt for BP supports. 2 Liters of NS are infusing at this time. NGT placed w/o any difficulty. Dark thick coffee ground content returned. Continue protonix gtt as order. Will call to appropriate physicians once I get him a little bit more stable.
[2018-11-01 05:52] LABS: URINE BILIRUBIN NEGATIVE (Negative); URINE BLOOD NEGATIVE (Negative); URINE CLARITY CLEAR; URINE COLOR YELLOW; URINE GLUCOSE-RANDOM* NEGATIVE (Negative); URINE KETONES NEGATIVE (Negative); URINE LEUKOCYTES-REFLEX NEGATIVE (Negative); URINE NITRITE-REFLEX NEGATIVE (Negative); URINE PROTEIN (DIPSTICK) 1+ (Negative); URINE SPECIFIC GRAVITY >= 1.030 (1.005-1.035); URINE UROBILINOGEN 0.2 E.U./dl (0.2-1.0)
[2018-11-01 06:00] LABS: SQUAMOUS 4-10 Moderate /LPF (0-3); URINE RBC 3-10 Few /HPF (0-2); URINE WBC-REFLEX 0-5 Rare /HPF (0-5)
[2018-11-01 06:01] LABS: AMORPHOUS URATES Few /LPF (None Seen); HYALINE CASTS 0-3 Few /LPF (None Seen); MUCUS 4-6 Moderate strn/LPF (None Seen)
--- NOTE | 2018-11-01 06:30 | NUR ---
This RN discussed with pt's daughter regarding of pt's code status. I went over his current conditions with her. He is now on 3 pressors and continue to have very low BPs. No improvement of urine output. She is agreed for him to be DNR for now but wanted to continue with current treatments until his grandaughter is here. She also spoke with Ms.K mccracken regarding of pt's code status as well. NO CODE status obtained. Continue to offers emotional supports to him and his daughter.
--- NOTE | 2018-11-01 07:00 | NUR ---
Pt remains unstable. 3 pressors are infusing at maximum dose. RT attempted to obtain ABG earlier w/o any success. Will call ABG result to once its available.
[2018-11-01 07:03] LABS: CALCIUM 8.9 mg/dL (8.5-10.1); CREATININE 0.9 mg/dL (0.7-1.3); POTASSIUM 4.4 mmol/L (3.5-5.1)
[2018-11-01 07:17] LABS: BE(vivo) -14.5 mmol/L (-2 to +3); HCO3 12.9 mmol/L (22.0-26.0); PCO2 37.9 mmHg (35.0-45.0); PO2 371.1 mmHg (80.0-100.0); sO2 99.7 % (92.0-98.0)
--- NOTE | 2018-11-01 09:50 | NUR ---
PAtients granddaughter expressed that Anil would not want any of this and she wanted him extubated. PAtient was on max limits of pressors. Physicians aware of patients status and was coming to see him. Dr. Dumont and Dr. Lopez rounded on patient and saw him. Gtt's were turned off and patient was extubated to comfort care. Prn medications were given for air hunger and restlessness. Anil ended up deceasing at 0930am with his family at bedside, appeared comfortable. Physicians made aware of patients passing.
--- NOTE | 2018-11-01 10:07 | EKG ---
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
--- NOTE | 2018-11-01 13:03 | HC ---
[facility] [place] [address] CONSULTATION Name: BHARATH THOMPSON Room #: 247-P [facility] IN M.R.#: [id number] Admission: 11/01/18 Attend Phys: Lindy Lopez Discharge: 11/01/18 Date of : 32 Report #: [id number] THIS REPORT FOR: //name// CC: Baltazar Ambrociocusbia Lobato REFERRING PHYSICIAN: Dr. Lopez. REASON FOR REFERRAL: Acute respiratory failure. HISTORY OF PRESENT ILLNESS: The patient is an 88-year-old white male who was brought to the Emergency Room with chest pain. His condition subsequently decompensated. He was eventually intubated. He was hypotensive. A pulmonary consultation was requested. The patient underwent an abdominal surgery several weeks ago. Postoperatively, did fairly well, however, recovery was slow, complicated with poor nutrition, poor oral intake. He was subsequently dismissed to a facility. He was brought to Emergency Room with progressive chest discomfort, chest pain radiating to the mid sternum, to the both shoulders and neck. He also had complaints of coffee-ground emesis one day prior to presentation along with generalized abdominal pain. Because of the chest pain, Cardiology was consulted. He was felt not to be in STEMI. Of note, CT chest angiogram showed no evidence of pulmonary embolus. CT abdomen and pelvis showed moderately distended large hiatal hernia, distended small bowel loop with early signs of adynamic ileus, but no obvious evidence of ischemic colitis. GI was consulted regarding abdominal pain, emesis. In the ER, the patient was found to be hypotensive, central line was placed. He was admitted to the ICU for presumed severe sepsis, source not clear at this point in time. Broad spectrum antibiotics were started. He was started on vasopressors. Just upon transfer to the ICU, the patient became unresponsive, hypotensive and subsequently had a cardiac arrest. He was intubated. He remains hypotensive requiring multiple vasopressors. The patient was also found to be anuric. He was given large volume resuscitation. The patient's granddaughter was present. At that point in time, they discussed with the hospitalist. They had requested DNR and comfort care. PAST MEDICAL HISTORY: As mentioned above. 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 The patient also has a history of COPD, diaphragmatic hernia, gastroesophageal reflux disease, anemia, hypothyroidism, vitamin D deficiency, hypertension, history of heart failure, failure to thrive with progressive weight loss and malnutrition. [facility] [address] [place] [address] CONSULTATION Name: BHARATH THOMPSON H[place]CHIN[place] Room #: 247-P [facility] IN M.R.#: [id number] Admission: 11/01/18 Attend Phys: Lindy Lopez Discharge: 11/01/18 Date of : 32 Report #: [id number] PAST SURGICAL HISTORY: As mentioned above. ALLERGIES: SULFA, REACTIONS UNSPECIFIED. CURRENT MEDICATIONS: Reviewed from the facility. FAMILY HISTORY: Noncontributory. SOCIAL HISTORY: As mentioned above. Past history of tobacco use. He has a history of social alcohol use. REVIEW OF SYSTEMS: Deferred as the patient is unresponsive. PHYSICAL EXAMINATION: GENERAL: He is now extubated, undergone comfort care. He is unresponsive. VITAL SIGNS: Temperature on admission was 97.8 degrees Fahrenheit, pulse is 100, respiratory rate is 26, blood pressure is 84/32 mmHg, saturation 100%. HEENT: Normocephalic, atraumatic. NECK: Supple, without lymphadenopathy or thyromegaly. CHEST: Breath sounds are fair due to poor effort. Few scattered crackles in the bases. CARDIOVASCULAR: Distant heart sounds. No obvious murmurs or gallop. ABDOMEN: Soft, no masses felt. GENITOURINARY: Deferred. RECTAL: Deferred. EXTREMITIES: No edema, but mild cyanosis at this time. NEUROLOGIC: Deferred as the patient is unresponsive. LABORATORY DATA: CT chest angiogram, angiogram of the abdomen and pelvis noted. No evidence of pulmonary embolus, marked distention of the stomach, filled with large hiatal hernia, extending in the lower mediastinum, fluid filled loops of small bowel is seen throughout the abdomen, right lower lobe infiltrates, moderate centrilobar emphysema. Chest x-ray shows increased size of the aortic arch, mild right lower lobe infiltrate, large hiatal hernia. Electrolytes: Sodium 143, potassium of 3.9, chloride 106, CO2 of 27, BUN is 27, creatinine 1.7. Liver enzymes are grossly unremarkable. WBC 22,600, hemoglobin 10.5, platelets normal. Albumin 2.8. Arterial blood gas revealed pH 7.15, pCO2 of 37, pO2 of 371. IMPRESSION: 1. Acute hypoxic respiratory failure in this 88-year-old white male with profound hypotension, large hiatal hernia, complains of chest pain, abdominal distention with recent emesis. Pneumonia along with severe sepsis is likely. Cannot rule out intra-abdominal processes, colitis or bowel ischemia. 2. Severe sepsis, septic shock, profound metabolic acidosis. Noted sodium [facility] [address] [place] [address] CONSULTATION Name: BHARATH THOMPSON Room #: 247-P [facility] IN M.R.#: [id number] Admission: 11/01/18 Attend Phys: Lindy Lopez Discharge: 11/01/18 Date of : 32 Report #: [id number] bicarbonate is 27. This may be the related to GI disorder. The patient has a normal anion gap. Loss of bicarbonate is suspected. 3. Acute kidney injury, anuria due to shock, resulting in acute tubular necrosis. 4. Large hiatal hernia, suspect aspiration, resulting in aspiration pneumonia. 5. History of chronic obstructive pulmonary disease, centrilobar emphysema by recent chest CT, severity unknown. 6. History of anemia. 7. Hypothyroidism. 8. Hypertension. 9. History of heart failure, specifics unknown in regards to LV function, ejection fraction. 10. Medical directive, DNR per family. RECOMMENDATION AND DISCUSSION: I was called regarding the patient's condition early this morning. The patient was fairly stable when he was transferred to Emergency Room. Upon transfer to ICU, he became unresponsive and hypotensive. He was intubated. Central line was placed previously in the ER. The patient had been given several liters of normal saline bolus. His multiple vasopressors were started. Despite these, he remained hypotensive, oliguric. Oxygenation is not a problem. Suspect aspiration pneumonia resulting in severe sepsis, hypotension. The patient also had a poor performance status since his surgery in August according to the family. He remained weak with a poor appetite along with ongoing weight loss. The patient then had expressed desires for DNR and comfort care. The patient was then subsequently extubated from the ventilator. Comfort care has been initiated. I concur with their decision. Thank you for the consultation. Critical care 1 hour. <ELECTRONICALLY SIGNED> By: Ben Dumont MD 11/01/18 1303 1029 1132 Ben Dumont MD /nt
== END 2018-11-01 09:30 | DRG 871 ==
LOC: ER 23:57 → EROBS 11-01 03:42 → ICU 11-01 04:53
PROVIDERS: Nurse Practitioner Family; Student in an Organized Health Care Education/Training Program; ADMIT Hospitalist
DX: A41.9 Sepsis, unspecified organism (principal); R65.21 Severe sepsis with septic shock; J96.01 Acute respiratory failure with hypoxia; N17.0 Acute kidney failure with tubular necrosis; J69.0 Pneumonitis due to inhalation of food and vomit; K92.0 Hematemesis; E87.2 Acidosis; Z68.1 Body mass index [BMI] 19.9 or less, adult; K31.1 Adult hypertrophic pyloric stenosis; K44.9 Diaphragmatic hernia without obstruction or gangrene; Z66 Do not resuscitate; I11.0 Hypertensive heart disease with heart failure; I50.9 Heart failure, unspecified; R62.7 Adult failure to thrive; D64.9 Anemia, unspecified; I25.10 Atherosclerotic heart disease of native coronary artery without angina pectoris; J44.9 Chronic obstructive pulmonary disease, unspecified; K21.9 Gastro-esophageal reflux disease without esophagitis; E03.9 Hypothyroidism, unspecified; Z87.891 Personal history of nicotine dependence; Z79.51 Long term (current) use of inhaled steroids; Z79.82 Long term (current) use of aspirin; Z79.899 Other long term (current) drug therapy; Z88.2 Allergy status to sulfonamides
CPT/HCPCS: 10078